=== PATIENT | male | born 1980 | race African-American/Black ===

== ENCOUNTER 2019-07-21 10:26 | Emergency (ER) | payer MEDICAID, OTHER ==
[~2019-07-21] VITALS: Ht 170.2 cm; Wt 68.2 kg
[2019-07-21] MEDS ORDERED: IBUPROFEN 800 MG TABLET PO ONE (11:45)
[2019-07-21 13:37] VITALS: BP 129/79
== END 2019-07-21 13:42 | disposition home or self-care (01) ==
LOC: EMS 10:29
DX: S63.602A Unspecified sprain of left thumb, initial encounter (principal); F12.90 Cannabis use, unspecified, uncomplicated; W19.XXXA Unspecified fall, initial encounter; Y93.67 Activity, basketball; Y92.89 Other specified places as the place of occurrence of the external cause; Y99.8 Other external cause status

== ENCOUNTER 2019-11-24 08:48 | Emergency (ER) | payer SELFPAY ==
[~2019-11-24] VITALS: Ht 170.2 cm; Wt 68.2 kg
[2019-11-24] MEDS ORDERED: CLOTRIMAZOLE 1% 15 GM CREAM TP ONE (09:30)
[2019-11-24 09:37] VITALS: BP 138/94
== END 2019-11-24 10:20 | disposition home or self-care (01) ==
LOC: EMS 08:49
DX: B35.3 Tinea pedis (principal); M21.612 Bunion of left foot; M21.611 Bunion of right foot; F12.90 Cannabis use, unspecified, uncomplicated

== ENCOUNTER 2024-06-10 18:51 | Emergency (ER) | payer OTHER ==
[~2024-06-10] VITALS: Ht 172.7 cm; Wt 79.5 kg
[2024-06-10 18:57] VITALS: BP 139/75; PULSE 86; RESP 18; TEMP 98; O2SAT 99
[2024-06-10 19:18] LABS: APPEARANCE,URINE HAZY (CLEAR); BILIRUBIN,URINE NEGATIVE (NEGATIVE); COLOR,URINE LIGHT YELLOW (YELLOW); GLUCOSE, URINE (UA) NEGATIVE (NEGATIVE); KETONES,URINE NEGATIVE (NEGATIVE); LEUKOCYTE ESTERASE ,URINE LARGE (NEGATIVE); NITRATE,URINE NEGATIVE (NEGATIVE); OCCULT BLOOD,URINE NEGATIVE (NEGATIVE); PROTEIN,URINE NEGATIVE (NEGATIVE); UROBILINOGEN,URINE <=1.0 mg/dL (<=1.0)
[2024-06-10 19:24] LABS: BACTERIA,URINE Few /HPF (None Seen); RBC,URINE 0-2 /HPF (0-2); SQUAMOUS EPITHELIAL CELL,UR Rare /LPF (None Seen); WBC,URINE 51-100 /HPF (0-5)
[2024-06-10 19:30] LABS: BASOPHILS % (AUTO) 1.4 % (0.0-2.0); EOSINOPHILS % (AUTO) 0.8 % (1.0-6.0); HEMATOCRIT 41.3 % (41-53); HEMOGLOBIN 13.5 g/dL (13.5-17.5); LYMPHOCYTES # (AUTO) 2.6 K/uL (1.0-4.8); LYMPHOCYTES % (AUTO) 24.3 % (22.0-44.0); MEAN CORPUSCULAR HEMOGLOBIN 30.7 pg (26.0-34.0); MEAN CORPUSCULAR HGB CONC 32.6 G/dL (31.0-37.0); MEAN CORPUSCULAR VOLUME 94 fL (80-100); NEUTROPHILS % (AUTO) 64.5 % (40.0-70.0); PLATELET COUNT (AUTO) 354 K/uL (150-450); RED CELL DISTRIBUTION WIDTH 15.8 % (11.5-14.5); WHITE BLOOD COUNT (AUTO) 10.9 K/uL (4.5-11.0)
[2024-06-10 19:39] LABS: ANION GAP 4 mmol/L (8-16); CALCIUM, TOTAL 8.3 mg/dL (8.8-10.5); CARBON DIOXIDE 30 mmol/L (22-29); CHLORIDE 105 mmol/L (98-107); CREATININE 0.95 mg/dL (0.60-1.30); GLOMERULAR FILTR. RATE CALC > 60 mL/min (>60); GLUCOSE,RANDOM 91 mg/dL (70-110); POTASSIUM 3.5 mmol/L (3.5-5.1); SODIUM SERUM 139 mmol/L (136-145); UREA NITROGEN, BLOOD 9 mg/dL (7-18)
[2024-06-10] MEDS: CefTRIAXone SODIUM 1 GM/VIAL IM ONE (23:05)
[2024-06-10] MEDS: LIDOCAINE/PF 1% 2 ML VIAL IM ONE (23:06)
[2024-06-10] MEDS: AZITHROMYCIN 500 MG TABLET PO ONE (23:06)
== END 2024-06-10 23:10 | disposition home or self-care (01) ==
LOC: EMS 18:51
DX: N34.2 Other urethritis (principal); F12.90 Cannabis use, unspecified, uncomplicated; F17.210 Nicotine dependence, cigarettes, uncomplicated; Z98.890 Other specified postprocedural states
CPT/HCPCS: 99283; 80048; 81001; 85025; 87086; 36415; 96372; J0456; J0696; J3490